=== PATIENT | female | born 1950 | race Caucasian/White ===

== ENCOUNTER → 2016-09-19 | Outpatient (CLI) | payer BC, OTHER ==
[~2016-09-19] MED LIST: ALBU0.632 IH; ALBU8.5H2 IH; CLCX100C PO; FLUT1DIS26 IH; LEVO5TAB2 PO; MNTL10T PO; MUPI1OIN5 NS; OMEP20CA12 PO; OXYC500S2 PO
--- NOTE | 2016-09-19 16:01 | Diagnostic Imaging Report ---
PROCEDURE: CT sinuses without contrast TECHNIQUE: Multiple contiguous axial images were obtained through the sinuses without the use of intravenous contrast. Coronal and sagittal reformations were then performed. INDICATION: Chronic sinusitis. Nasal polyps. FINDINGS: There is suggestion of prior sinonasal surgery with resection of portions of the medial wall of the maxillary sinus and portions of the middle turbinates bilaterally. The maxillary sinuses demonstrate moderate mucosal thickening bilaterally. The surgically widened drainage pathway is patent however. There is significant polypoid mucosal thickening seen along the mid and upper aspect of the nasal cavity and extending into the ethmoidal air cells which demonstrate absence of some of its bony margins and septa inferiorly probably secondary to prior surgery as well. There is significant mucosal thickening in the frontal sinuses as well. The mastoid air cells and middle ear cavities appear clear. The sphenoidal sinuses appear clear. IMPRESSION: Postsurgical changes seen. 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 Dictated by: Dictated on workstation # [id number]
== END ==
LOC: RAD 14:06
PROVIDERS: ATTEND Otolaryngology Otolaryngology/Facial Plastic Surgery
DX: J32.9 Chronic sinusitis, unspecified (principal); J33.9 Nasal polyp, unspecified
CPT/HCPCS: 70486

== ENCOUNTER 2016-11-21 15:11 | Outpatient (CLI) | payer BC ==
[~2016-11-21] VITALS: Ht 162.6 cm; Wt 81.6 kg
[~2016-11-21 15:11] MED LIST changes: +CHOL200014 PO; +LEVO5TAB12 PO
== END 2016-11-21 15:19 ==
LOC: PREOP 15:11
PROVIDERS: ATTEND Otolaryngology Otolaryngology/Facial Plastic Surgery
DX: Z01.818 Encounter for other preprocedural examination (principal); J32.9 Chronic sinusitis, unspecified; J33.9 Nasal polyp, unspecified

== ENCOUNTER 2016-11-23 06:09 | Day surgery (SDC) | payer BC ==
[~2016-11-23] VITALS: Ht 162.6 cm; Wt 81.6 kg
--- OUTSIDE RECORDS SUMMARY | 2016-11-23 06:13 | XMS REPORT | Continuity of Care Document ---
Author Author [facility] Organization [facility] Address Unknown Phone Unavailable Allergies Active Description Code Type Severity Reaction Onset Reported/Identified Relationship to Patient Clinical Status Yes aspirin [id number] Drug Allergy Unknown HARD TO BREATH, 04/30/2013 Yes ibuprofen [id number] Drug Allergy Unknown HARD TO BREATH, 04/30/2013 Yes Penicillins [id number] Drug Allergy Unknown FAINTING 04/30/2013 Medications Problems Date Dx Coded Attending Type Code Diagnosis Diagnosed By 03/12/2013 JONO HOUSE DO Ot 715.90 OSTEOARTHROS NOS-UNSPEC 03/12/2013 JONO HOUSE DO Ot V57.1 PHYSICAL THERAPY NEC 05/10/2013 AMANDA TORRES MD Ot 272.0 PURE HYPERCHOLESTEROLEM 05/10/2013 AMANDA TORRES MD Ot 278.01 MORBID OBESITY 05/10/2013 AMANDA TORRES MD Ot 493.90 ASTHMA, UNSPECIFIED 05/10/2013 AMANDA TORRES MD Ot 553.3 DIAPHRAGMATIC HERNIA 05/10/2013 AMANDA TORRES MD Ot V85.41 BODY MASS INDEX 40.0-44.9, ADULT 09/12/2016 JONO HOUSE DO Ot 493.90 ASTHMA, UNSPECIFIED 09/12/2016 AMANDA TORRES MD Ot 496 CHR AIRWAY OBSTRUCT NEC 09/12/2016 AMANDA TORRES MD Ot 530.81 ESOPHAGEAL REFLUX 09/12/2016 AMANDA TORRES MD Ot 780.79 OTH MALAISE FATIGUE 09/12/2016 JONO HOUSE DO Ot V76.12 OTH SCREEN MAMMO-MALIGN NEOPLASM OF DOLLY 09/12/2016 AMANDA TORRES MD Ot 272.0 PURE HYPERCHOLESTEROLEM 09/12/2016 AMANDA TORRES MD Ot 278.01 MORBID OBESITY 09/12/2016 AMANDA TORRES MD Ot V72.63 PRE-PROCEDURAL LABORATORY EXAMINATION 09/12/2016 AMANDA TORRES MD Ot V74.8 SCREEN-BACTERIAL DIS NEC 09/12/2016 AMANDA TORRES MD Ot V85.41 BODY MASS INDEX 40.0-44.9, ADULT 09/19/2016 LANIE BALES MD Ot J32.9 CHRONIC SINUSITIS, UNSPECIFIED 09/19/2016 LANIE BALES MD Ot J33.9 NASAL POLYP, UNSPECIFIED 10/17/2016 LANIE BALES MD Ot J32.9 CHRONIC SINUSITIS, UNSPECIFIED 10/17/2016 LANIE BALES MD Ot J33.9 NASAL POLYP, UNSPECIFIED 11/17/2016 JONO HOUSE DO Ot 493.90 ASTHMA, UNSPECIFIED 11/17/2016 AMANDA TORRES MD Ot 496 CHR AIRWAY OBSTRUCT NEC 11/17/2016 AMANDA TORRES MD Ot 530.81 ESOPHAGEAL REFLUX 11/17/2016 AMANDA TORRES MD Ot 780.79 OTH MALAISE FATIGUE 11/17/2016 JONO HOUSE DO Ot V76.12 OTH SCREEN MAMMO-MALIGN NEOPLASM OF DOLLY 11/17/2016 AMANDA TORRES MD Ot 272.0 PURE HYPERCHOLESTEROLEM 11/17/2016 AMANDA TORRES MD Ot 278.01 MORBID OBESITY 11/17/2016 AMANDA TORRES MD Ot V72.63 PRE-PROCEDURAL LABORATORY EXAMINATION 11/17/2016 AMANDA TORRES MD Ot V74.8 SCREEN-BACTERIAL DIS NEC 11/17/2016 AMANDA TORRES MD Ot V85.41 BODY MASS INDEX 40.0-44.9, ADULT 11/17/2016 LANIE BALES MD Ot J32.9 CHRONIC SINUSITIS, UNSPECIFIED 11/17/2016 LANIE BALES MD Ot J33.9 NASAL POLYP, UNSPECIFIED Procedures Results Encounters ACCT No. Visit Date/Time Discharge Status Pt. Type Provider Facility Loc./Unit Complaint [id number] 05/09/2013 09:48:00 2012 14:00:00 DIS Outpatient AMANDA TORRES MD [facility] OBESITITY [id number] 04/30/2013 10:57:00 2012 23:59:59 CLS Outpatient AMANDA TORRES MD [facility] PREOP OBESITITY [id number] 03/27/2013 08:37:00 2012 23:59:59 CLS Outpatient JONO HOUSE DO [facility] RAD SCREENING [id number] 03/27/2013 08:29:00 2012 23:59:59 CLS Outpatient AMANDA TORRES MD [facility] RAD GERD [id number] 03/12/2013 10:30:00 2012 13:36:00 DIS Outpatient JONO HOUSE DO [facility] REHAB OA [id number] 12/04/2012 09:31:00 2012 23:59:59 CLS Outpatient JONO HOUSE DO [facility] RT ASTHMA [id number] 11/23/2016 09:00:00 PEN Preadmit LANIE BALES MD [facility] SDC NASAL POLYPS AND CHRONIC SINUSITIS [id number] 11/20/2016 09:00:00 PEN Preadmit LANIE BALES MD [facility] PREOP NASAL POLYPS AND CHRONIC SINUSITIS [id number] 09/19/2016 14:06:00 ACT Outpatient LANIE BALES MD [facility] RAD CHRONIC NASAL POLYPS,CHRONIC SINUSITIS
--- NOTE | 2016-11-23 06:34 | Progress Note-Pre Operative ---
Pre-Operative Progress Note H&P Reviewed The H&P was reviewed, patient examined and no changes noted. Date Seen by Provider: Nov 23, 2016 Time Seen by Provider: 06:30 Date H&P Reviewed: Nov 23, 2016 Time H&P Reviewed: :30 Pre-Operative Diagnosis: Bilat Chronic SInus Disease, Bilat Nasal Polyps LANIE BALES MD Nov 23, 2016 6:34 am
[2016-11-23 06:40] VITALS: BP 143/73
[2016-11-23 06:48] LABS: BASOPHILS % (AUTO) 0 % (0-10); EOSINOPHILS # (AUTO) 0.3 10^3/uL (0.0-0.3); EOSINOPHILS % (AUTO) 3 % (0-10); LYMPHOCYTES # (AUTO) 2.7 X 10^3 (1.0-4.0); LYMPHOCYTES % (AUTO) 25 % (12-44); MEAN CORPUSCULAR HEMOGLOBIN 19 PG (25-34); MEAN CORPUSCULAR HGB CONC 32 G/DL (32-36); MEAN CORPUSCULAR VOLUME 59 FL (80-99); MONOCYTES % (AUTO) 9 % (0-12); NEUTROPHILS # (AUTO) 6.8 X 10^3 (1.8-7.8); NEUTROPHILS % (AUTO) 63 % (42-75); PLATELET COUNT 423 10^3/uL (130-400); RED BLOOD COUNT 5.44 10^6/uL (4.35-5.85); RED CELL DISTRIBUTION WIDTH 17.3 % (10.0-14.5); WHITE BLOOD COUNT 10.9 10^3/uL (4.3-11.0)
[2016-11-23] MEDS ORDERED: HYDROCORTISONE 100 MG/2 ML (Solu-CORTEF) VIAL ONE (06:49)
[2016-11-23] MEDS: LACTATED RINGERS 1,000 ML IV PRN ×2 (06:59→09:20)
[2016-11-23] MEDS ORDERED: NS (IVPB) 50 ML ONE (07:08)
[2016-11-23] MEDS ORDERED: CLINDAMYCIN 600 MG/4ML (CLEOCIN) VIAL ONE (07:08)
[2016-11-23 07:12] LABS: ANION GAP 13 MMOL/L (5-14); BLOOD UREA NITROGEN 18 MG/DL (7-18); BUN/CREATININE RATIO 24; CALCIUM 9.2 MG/DL (8.5-10.1); CARBON DIOXIDE 24 MMOL/L (21-32); CHLORIDE 105 MMOL/L (98-107); CREATININE SERUM 0.76 MG/DL (0.60-1.30); GFR ESTIMATED > 60; GLUCOSE 94 MG/DL (70-105); POTASSIUM 3.8 MMOL/L (3.6-5.0); SODIUM 142 MMOL/L (135-145)
[2016-11-23] MEDS ORDERED: SULBACTAM IV ONE (07:15)
[2016-11-23] MEDS ORDERED: CATHETER FLUSH 10 ML SYR IV PRN (07:15)
[2016-11-23] MEDS ORDERED: AMPICILLIN IV ONE (07:15)
[2016-11-23] MEDS ORDERED: NS IV ONE (07:15)
[2016-11-23] MEDS ORDERED: CLINDAMYCIN INJECTION 600 MG in NS (IVPB) 50 ML IV ONE (07:30)
[2016-11-23] MEDS ORDERED: PHENYLEPHRINE 0.5% NASAL SPR (NEO-SYNEPHRINE) REG ONE (07:50)
[2016-11-23] MEDS ORDERED: COCAINE HCL 4% 2 ML SYR ONE (07:50)
[2016-11-23] MEDS ORDERED: LIDOCAINE/EPI 1%-1:200,000 (XYLOCAINE) 30 ML VIAL ONE (07:50)
[2016-11-23] MEDS ORDERED: fentaNYL INJECTION 100 MCG/2 ML AMP ONE (08:44)
[2016-11-23] MEDS ORDERED: MIDAZOLAM 2 MG/2 ML (VERSED) VIAL ONE (08:44)
--- NOTE | 2016-11-23 08:57 | Diagnostic Imaging Report ---
Frontal view of the chest. INDICATION: Preoperative evaluation. FINDINGS: The heart size is at the upper limits of normal. There is a mild opacity along the lateral mid right lung seen. The left lung is clear. No effusion or pneumothorax. IMPRESSION: Mild nonspecific opacity along the lateral mid aspect of the right lung which could relate to atelectasis. If there is clinical picture of infection, early pneumonia could be considered. Dictated by: Dictated on workstation # [id number]
[2016-11-23] MEDS ORDERED: D5 1/2 NS W/KCL 20 MEQ/L 1,000 ML IV SCH (09:59)
--- NOTE | 2016-11-23 09:59 | Progress Note-Post Operative ---
Post-Operative Progess Note Surgeon (s)/Personalized Living Manager (s) Surgeon LANIE BALES MD Personalized Living Manager n/a Pre-Operative Diagnosis Bilat Chronic SInus Disease, Bilat Nasal Polyps Post-Operative Diagnosis same Post-Op Procedure Note Date of Procedure: Nov 23, 2016 Name of Procedure Performed: Bilat Revision ESS Description & Findings Description and Findings: n/a Anesthesia Type get Estimated Blood Loss 200cc Packing none. Specimen(s) collected/removed Bialt nasal polyps and chroinc sinus disease LANIE BALES MD Nov 23, 2016 9:59 am
[2016-11-23] MEDS ORDERED: predniSONE 20 MG TAB PO ONE (10:00)
[2016-11-23] MEDS ORDERED: ACETAMINOPHEN 325 MG TABLET/CAPLET (TYLENOL) PO PRN (10:00)
[2016-11-23] MEDS ORDERED: HYDROcodone/APAP 5 MG/325 MG (LORTAB) TAB PO PRN (10:00)
[2016-11-23] MEDS ORDERED: ONDANSETRON 4 MG (ZOFRAN) ORAL DISSOLVE TAB PO PRN (10:00)
[2016-11-23] MEDS ORDERED: proPOfol 200 MG/20 ML (DIPRIVAN) VIAL IV ONE (10:14)
[2016-11-23] MEDS ORDERED: LIDOCAINE PF 2% 5 ML (XYLOCAINE) VIAL ONE (10:14)
[2016-11-23] MEDS ORDERED: NEOSTIGMINE (BLOXIVERZ ) 1 MG/1ML 10 ML VIAL ONE (10:14)
[2016-11-23] MEDS ORDERED: DEXAMETHASONE PF 10 MG/ML (DECADRON) VIAL ONE (10:14)
[2016-11-23] MEDS ORDERED: GLYCOPYRROLATE 0.2 MG/ML (ROBINUL) 2 ML VIAL ONE (10:14)
[2016-11-23] MEDS ORDERED: ROCURONIUM 50 MG/5 ML (ZEMURON) VIAL IV ONE (10:14)
[2016-11-23] MEDS ORDERED: SEVOFLURANE (ULTANE) 15 ML INHAL SOLN ONE (10:14)
[2016-11-23] MEDS ORDERED: LACTATED RINGERS 2,000 ML IV ONE (10:14)
[2016-11-23] MEDS ORDERED: ONDANSETRON 4 MG/2 ML (SDV) Z0FRAN IVP PRN (10:30)
[2016-11-23] MEDS ORDERED: morphine INJ 10 MG/ML 1ML (SYR OR VIAL) IVP PRN (10:30)
[2016-11-23] MEDS ORDERED: HYDR-3812 PO (10:50)
[2016-11-23] MEDS ORDERED: CLIN150C2 PO (10:50)
[2016-11-23] MEDS ORDERED: PRD20T PO (10:50)
[2016-11-23 11:10] VITALS: BP 123/62
[2016-11-23 11:40] VITALS: BP 124/58
== END 2016-11-23 11:50 | disposition home or self-care (01) ==
LOC: SDC 06:09
PROVIDERS: ATTEND Otolaryngology Otolaryngology/Facial Plastic Surgery
DX: J32.0 Chronic maxillary sinusitis (principal); J32.1 Chronic frontal sinusitis; J32.2 Chronic ethmoidal sinusitis; J33.9 Nasal polyp, unspecified; J44.9 Chronic obstructive pulmonary disease, unspecified; J45.909 Unspecified asthma, uncomplicated; E66.9 Obesity, unspecified; Z68.30 Body mass index [BMI] 30.0-30.9, adult
CPT/HCPCS: 36415; 71010; 80048; 85025; 87081; 93005

== ENCOUNTER → 2018-10-21 | Outpatient (CLI) | payer BC, MEDICARE ==
[~2018-10-21] MED LIST changes: +ACHD5005 PO; +CLIN150C2 PO; +PRD20T PO
--- NOTE | 2018-10-21 16:37 | Diagnostic Imaging Report ---
PROCEDURE: CT angiography of the chest with contrast. TECHNIQUE: Multiple contiguous axial images were obtained through the chest after uneventful bolus administration of intravenous contrast. 2D reconstructed CTA MIP acquisitions were also performed. Auto Exposure Controls were utilized during the CT exam to meet ALARA standards for radiation dose reduction. INDICATION: Night sweats, syncope, chest pain. COMPARISON: There are no prior exams for comparison. FINDINGS: There are no intraluminal pulmonary arterial filling defects. There are no findings of pulmonary arterial embolus. There is airspace consolidation in portions of the right upper lobe anteromedially. The possibility of consolidation on a post obstructive basis owing to an endobronchial lesion could not be excluded. Suggest a short-term radiographic followup and, if this fails to resolve over the next 1 to 2 weeks, bronchoscopy may be of benefit. There is a borderline prominent right hilar lymph node, indeterminate reactive versus metastatic, measuring 1.4 cm. Some superior pulmonary hilar adenopathy as well is also indeterminate. A low density node in the right lower paratracheal mediastinum is 1.7 cm. There are some small shotty subcentimeter superior paratracheal mediastinal nodes. The aorta is patent and nonaneurysmal. There is no pleural or pericardial effusion. There is gastric lap banding present with no abnormal dilatation of the esophagus above. IMPRESSION: 1. Right upper lobe consolidation, indeterminate between simple pneumonia or post obstructive disease. There is some mild adenopathy which could be reactive or metastatic. If there are clinical features consistent with acute pneumonia, then short-term radiographic followup to resolution would be appropriate. If the clinical diagnosis of pneumonia is in doubt, a more prompt evaluation for possible bronchoscopy may be of benefit. 2. Gastric lap banding without evidence for its obstruction or perforation. 3. The pertinent results of the exam have been discussed by phone with the ordering physician at the time of dictation. Dictated by: Dictated on workstation # [id number]
== END ==
LOC: RAD 15:37
PROVIDERS: ATTEND Internal Medicine
DX: J18.1 Lobar pneumonia, unspecified organism (principal); R59.0 Localized enlarged lymph nodes; Z98.84 Bariatric surgery status
CPT/HCPCS: 71275

== ENCOUNTER → 2018-12-24 | Outpatient (CLI) | payer BC, MEDICARE ==
[~2018-12-24] MED LIST changes: +HOLD METFORMIN - RECEIVED CONTRAST 20 ML VIAL IV SCH; +IOHEXOL 350 MG/ML 150 ML (OMNIPAQUE 350) VIAL IV ONE; +NS 100 ML (IVPB) BAG IV ONE
--- NOTE | 2018-12-24 11:53 | Diagnostic Imaging Report ---
PROCEDURE: CT angiography of the chest with contrast. TECHNIQUE: Multiple contiguous axial images were obtained through the chest after uneventful bolus administration of intravenous contrast. 3D reconstructed CTA MIP acquisitions were also performed. Auto Exposure Controls were utilized during the CT exam to meet ALARA standards for radiation dose reduction. INDICATION: Exertional dyspnea. Comparison with 10/21/2018 exam. Findings: There is good opacification of the aorta and pulmonary arteries following IV contrast injection. No evidence of aortic aneurysm or dissection. There are no filling defects to indicate pulmonary emboli. The dense consolidation and atelectasis in the right upper lobe has nearly completely resolved since previous exam with minimal peripheral scarring or infiltrate remaining. There has been development of some atelectasis in the lingula since the previous exam. There also is a mild groundglass appearance noted to the lower lobes bilaterally. There has been no change in the mediastinal and hilar lymph nodes since previous exam. There is no pleural effusion or pericardial effusion. No bony lesions have developed. IMPRESSION: 1. There has been near complete clearing of the right upper lobe consolidated infiltrate in the atelectasis. Minimal residual density peripherally in the right upper lobe which may represent scarring. 2. There has been development of a focal area of discoid atelectasis in the lingula on the left. 3. There are now groundglass infiltrates in the lower lobes bilaterally which may represent some pulmonary edema or inflammatory process. Dictated by: Dictated on workstation # [id number]
== END ==
LOC: RAD 11:05
PROVIDERS: ATTEND Internal Medicine
DX: J18.1 Lobar pneumonia, unspecified organism (principal); J98.11 Atelectasis
CPT/HCPCS: 71275

== ENCOUNTER → 2019-05-28 | Outpatient (CLI) | payer BC ==
[~2019-05-28] MED LIST changes: -HOLD METFORMIN - RECEIVED CONTRAST 20 ML VIAL IV SCH; -IOHEXOL 350 MG/ML 150 ML (OMNIPAQUE 350) VIAL IV ONE; -NS 100 ML (IVPB) BAG IV ONE
--- NOTE | 2019-05-28 20:15 | Diagnostic Imaging Report ---
EXAMINATION: Left shoulder radiographs, 3 views. COMPARISON: None. HISTORY: 69-year-old female, left shoulder pain. FINDINGS: There is moderate glenohumeral joint space loss with mild osteophyte formation. The humeral head is not dislocated. The humeral head is superiorly subluxed. The acromioclavicular joint is normally aligned. There are no prominent acromioclavicular degenerative changes. There is no identified acute fracture. IMPRESSION: 1. Moderate glenohumeral osteoarthritis. 2. The humeral head is mildly superiorly subluxed. 3. Intact acromioclavicular joint. Dictated by: Dictated on workstation # [id number]
== END ==
LOC: RAD 16:09
PROVIDERS: ATTEND Internal Medicine
DX: S43.002A Unspecified subluxation of left shoulder joint, initial encounter (principal); M19.012 Primary osteoarthritis, left shoulder; M70.71 Other bursitis of hip, right hip
CPT/HCPCS: 73030